=== PATIENT | male | born 1950 | race Caucasian/White ===

== ENCOUNTER 2017-05-12 19:37 | Inpatient (IN) | payer OTHER ==
[2017-05-12 19:42] VITALS: BMI 36.9
--- NOTE | 2017-05-12 21:53 | PDOC ---
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 Patient denies fever, complains of tactile warmth. Patient denies nausea/vomiting/diarrhea. Patient's wound was cultured at the [facility] wound care clinic on May 07 of this year with the resultant wound culture being positive for Klebsiella-ESBL producing, Pseudomonas, staph aureus and Enterococcus faecalis. Patient was instructed to report to the ER for further evaluation and treatment REVIEW OF SYSTEMS CONSTITUTIONAL: No fever, no chills, no fatigue EYES: No visual changes ENT: No ear pain, no sore throat CARDIOVASCULAR: No chest pain, no palpitations RESPIRATORY: No cough, no SOB GI: No abdominal pain, no nausea, no vomiting, no constipation, no diarrhea GENITOURINARY: No dysuria, no frequency, no hematuria MUSKULOSKELETAL: No backpain, r. leg pain/erythema/wound/pain, no myalgias SKIN: No rash NEURO: No headache EXAMINATION CONSTITUTIONAL: Well-appearing; well-nourished; in no apparent distress HEAD: Normocephalic; atraumatic EYES: PERRL; EOM intact ENMT: External appears normal; normal oropharynx NECK: Supple; non-tender; no cervical lymphadenopathy CARD: Normal S1, S2; no murmurs, rubs, or gallops RESP: Normal chest excursion with respiration; breath sounds clear and equal bilaterally; no wheezes, rhonchi, or rales ABD: Soft, non-distended; non-tender; no palpable organomegaly, no palpable hernias EXT: + extensive chronic venous stasis dermatitis with extensive plaque formation b/l, with a large non-healing superficial ulceration with surrounding erythema to the distal 1/3 of the RLE with foul smelling discharge. Distal pulses are decreased b/l. SKIN: Warm, dry, no rash NEURO: No focal neurological deficiencies. 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) COPD: No CHF: No Dementia: No Diabetes: No GI Disorders: No Disorders: No HTN: Yes Hypercholesterolemia: Yes Liver Disease: No Psychiatric Problems: Yes (depression) Seizures: No Thyroid Disease: No Other medical history: dvt - Surgical History Abdominal Surgery: No Appendectomy: No Cardiac Surgery: No Cholecystectomy: No Lung Surgery: No Neurologic Surgery: No Orthopedic Surgery: Yes (broken colloar bone) - Immunization History Immunization Up to Date: Yes - Psycho/Social/Smoking Cessation Hx Anxiety: No Suicidal Ideation: No Smoking History: Never smoked Have you smoked in the past 12 months: No Number of Cigarettes Smoked Daily: 0 Hx Alcohol Use: Yes (socially) Drug/Substance Use Hx: No Substance Use Type: None Hx Substance Use Treatment: No <Zohaib Olmstead - Last Filed: 05/13/17 00:28> - Past Medical History Allergies/Adverse Reactions: Allergies Allergy/AdvReac Type Severity Reaction Status Date / Time No Known Allergies Allergy Verified 05/12/17 19:39 Home Medications: Ambulatory Orders Lamotrigine [Lamictal -] 600 mg PO HS #0 tablet 09/11/13 Warfarin Sodium [Coumadin] 7.5 mg PO DAILY #0 tablet 09/11/13 Crestor - 10 mg PO DAILY 04/30/17 Acetaminophen W/ Codeine #3 [Tylenol # 3 -] 1 tab PO Q6H #60 tablet MDD 4 Amoxicillin/Potassium Clav [Augmentin 875-125 Tablet] 1 each PO BID #14 tablet 05/07/17 *Physical Exam - Vital Signs Last Vital Signs Temp Pulse Resp BP Pulse Ox 98.7 F 86 20 122/80 96 05/12/17 19:39 05/12/17 19:39 05/12/17 19:39 05/12/17 19:39 05/12/17 19:39 <Marge Matthew - Last Filed: 05/12/17 23:40> - Vital Signs Last Vital Signs Temp Pulse Resp BP Pulse Ox 98.7 F 86 20 122/80 96 05/12/17 19:39 05/12/17 19:39 05/12/17 19:39 05/12/17 19:39 05/12/17 19:39 <Zohaib Olmstead - Last Filed: 05/13/17 00:28> Heart Score/ECG Review - ECG Impressions Comment:: 05/12/17 23:43 EKG As Interpreted by: Dr. Olmstead Vent rate 86 bpm Normal sinus rhythm Moderate voltage criteria for LVH, may be normal variant Borderline ECG <Marge Matthew - Last Filed: 05/12/17 23:40> ED Treatment Course - LABORATORY CBC & Chemistry Diagram: 05/12/17 22:43 05/12/17 22:43 - ADDITIONAL ORDERS Additional order review: Laboratory Results 05/12/17 05/12/17 22:43 22:43 INR 1.12 D Sodium 139 Potassium 4.2 Chloride 101 Carbon Dioxide 30 Anion Gap 8 BUN 20 H D Creatinine 1.1 Creat Clearance w eGFR > 60 Random Glucose 99 Calcium 8.5 Total Bilirubin 0.5 D AST 26 ALT 24 D Alkaline Phosphatase 54 Total Protein 6.4 Albumin 3.1 L 05/12/17 22:43 RBC 4.07 MCV 90.3 MCHC 33.7 RDW 14.1 D MPV 7.0 L Neutrophils % 60.2 D Lymphocytes % 24.9 D Monocytes % 12.2 H Eosinophils % 1.8 D Basophils % 0.9 <Marge Matthew - Last Filed: 05/12/17 23:40> - LABORATORY CBC & Chemistry Diagram: 05/12/17 22:43 05/12/17 22:43 <Zohaib Olmstead - Last Filed: 05/13/17 00:28> Medical Decision Making - Medical Decision Making 05/13/17 00:27 Patient is 66-year-old male with history of chronic venous stasis and recurrent nonhealing ulcers who presents with a nonhealing right lower externally ulceration with associated cellulitis which on a recent wound culture was positive for polymicrobial infection included Klebsiella which was ESBL producing. In the ER, patient is awake and alert, afebrile, nontoxic appearing with extensive chronic venous stasis dermatitis and a large superficial ulceration which appears acutely infected to the distal one third of the right lower extremity. Case discussed with ID. Will treat with imipenem and vancomycin pending results of the ER sensitivity studies. Will admit. <Zohaib Olmstead - Last Filed: 05/13/17 00:28> *DC/Admit/Observation/Transfer <Marge Matthew - Last Filed: 05/12/17 23:40> - Discharge Dispostion Admit: Yes <Zohaib Olmstead - Last Filed: 05/13/17 00:28> Diagnosis at time of Disposition: Cellulitis Qualifiers: Site of cellulitis: extremity Site of cellulitis of extremity: lower extremity Laterality: right Qualified Code(s): L03.115 - Cellulitis of right lower limb - Referrals Referrals: Wilbert Slade [Primary Care Provider] -
[2017-05-12] MEDS ORDERED: IMIPENEM/CILASTATIN SODIUM 500 MG in SODIUM CHLORIDE 100 ML IV ONE (22:50)
[2017-05-12 23:05] LABS: BASOPHIL 0.9 % (0-2.0); EOSINOPHIL 1.8 % (0-4.5); MCH 30.4 pg (25.7-33.7); MCHC 33.7 g/dl (32.0-35.9); MEAN CELL VOLUME 90.3 fl (80-96); NEUTROPHILS 60.2 % (42.8-82.8); PLATELET COUNT 220 K/MM3 (134-434); RDW 14.1 % (11.9-15.9); WHITE BLOOD COUNT 7.1 K/mm3 (4.0-10.0)
[2017-05-12 23:20] LABS: INR 1.12 (0.82-1.09); PROTHROMBIN TIME (PATIENT) 12.3 SEC (9.98-11.88)
[2017-05-12 23:32] LABS: ALBUMIN 3.1 g/dl (3.4-5.0); ALK PHOS 54 U/L (45-117); ANION GAP 8 (8-16); BILIRUBIN,TOTAL 0.5 mg/dL (0.2-1.0); CALCIUM 8.5 mg/dL (8.5-10.1); CO2 30 mmol/L (21-32); CREATININE 1.1 mg/dL (0.7-1.3); GLUCOSE,RANDOM 99 mg/dL (74-106); SGPT/ALT 24 U/L (12-78); TOT PROT 6.4 g/dl (6.4-8.2)
[2017-05-12] MEDS ORDERED: ENOXAPARIN NA (PORCINE) 100 MG/1 ML DISP.SYRIN SQ ONE (23:32)
[2017-05-12 23:34] LABS: SGOT/AST 26 U/L (15-37)
[2017-05-12] MEDS ORDERED: WARFARIN NA 10 MG TABLET (FP) PO ONE (23:34)
[2017-05-13] MEDS ORDERED: ENOXAPARIN NA (PORCINE) 100 MG/1 ML DISP.SYRIN SQ ONE (00:03)
[2017-05-13] MEDS ORDERED: WARFARIN NA 5 MG TABLET (UD) ONE (00:03)
--- NOTE | 2017-05-13 00:10 | PN ---
Teaching Attending Note ATTENDING PHYSICIAN STATEMENT I saw and evaluated the patient. I reviewed the resident's note and discussed the case with the resident. I agree with the resident's findings and plan as documented. SUBJECTIVE: OBJECTIVE: ASSESSMENT AND PLAN:
[2017-05-13] MEDS ORDERED: HEPARIN NA (PORCINE) 5,000 UNITS/ML 1ML VIAL SQ SCH (02:00)
--- NOTE | 2017-05-13 03:48 | HP ---
CHIEF COMPLAINT: Received call from wound care for positive blood cultures HISTORY OF PRESENT ILLNESS: Pt is a 66yo M with PMHx of chronic venous insufficiency, recurrent nonhealing lower extremity ulcers, bilateral DVTs (on Coumadin) who presented to the ER due to positive wound cultures. The patient is well known to Dr. Gray's wound care clinic. He presented there on May 07 for a routine visit, with recently developed a RLE nonhealing large superficial ulcer draining clear liquid, malodorous. His wound was cultured at the wound clinic, he was prescribed Augmentin, and sent home. He received a call from the wound clinic due to positive wound cultures, and was instructed to report to the ER. He denies fevers, chills, endorses TTP around site. Denies recent trauma to the site. 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 Smoking: Denies Alcohol: Occasional Drugs: Denies Family History: Noncontributory Allergies No Known Allergies Allergy (Verified 05/12/17 19:39) HOME MEDICATIONS: Home Medications Medication Instructions Recorded Crestor - 10 mg PO HS 04/30/17 Amoxicillin/Potassium Clav 1 each PO BID #14 tablet 05/07/17 [Augmentin 875-125 Tablet] Acetaminophen W/ Codeine #3 1 tab PO Q6H PRN MDD 4 05/13/17 [Tylenol # 3 -] Alprazolam 0.5 mg PO DAILY 05/13/17 Alprazolam 1 mg PO HS 05/13/17 Brexpiprazole [Rexulti] 0.5 mg PO DAILY 05/13/17 Furosemide [Lasix] 80 mg PO DAILY 05/13/17 Lamotrigine [Lamictal -] 200 mg PO HS 05/13/17 Lisdexamfetamine Dimesylate 20 mg PO DAILY 05/13/17 [Vyvanse] Lisdexamfetamine Dimesylate 40 mg PO DAILY 05/13/17 [Vyvanse] Sertraline HCl [Zoloft] 150 mg PO DAILY 05/13/17 Warfarin Sodium [Coumadin] 10 mg PO DAILY 05/13/17 REVIEW OF SYSTEMS CONSTITUTIONAL: Absent: fever, chills, diaphoresis, generalized weakness, malaise, loss of appetite, weight change HEENT: Absent: rhinorrhea, nasal congestion, throat pain, throat swelling, difficulty swallowing, mouth swelling, ear pain, eye pain, visual changes CARDIOVASCULAR: Absent: chest pain, syncope, palpitations, irregular heart rate, lightheadedness , peripheral edema RESPIRATORY: Absent: cough, shortness of breath, dyspnea with exertion, orthopnea, wheezing, stridor, hemoptysis GASTROINTESTINAL: Absent: abdominal pain, abdominal distension, nausea, vomiting, diarrhea, constipation, melena, hematochezia GENITOURINARY: Absent: dysuria, frequency, urgency, hesitancy, hematuria, flank pain, genital pain MUSCULOSKELETAL: Absent: myalgia, arthralgia, joint swelling, back pain, neck pain SKIN: Absent: rash, itching, pallor HEMATOLOGIC/IMMUNOLOGIC: Absent: easy bleeding, easy bruising, lymphadenopathy, frequent infections ENDOCRINE: Absent: unexplained weight gain, unexplained weight loss, heat intolerance, cold intolerance NEUROLOGIC: Absent: headache, focal weakness or paresthesias, dizziness, unsteady gait, seizure, mental status changes, bladder or bowel incontinence PSYCHIATRIC: Absent: anxiety, depression, suicidal or homicidal ideation, hallucinations. PHYSICAL EXAMINATION GEN: AAOx3, NAD, No cervical LAD HEENT: PERRLA, EOMi CV: S1, S2, RRR LUNG: CTABL ABD: Soft, NT, ND, normoactive BS MSK: Right Lower Ext: Large open superficial ulcer extending from lateral midcalf to ankle, malodorous, minimal oozing, no bone exposed, TTP Left Lower Ext: Chronic venous stasis changes, no edema NEURO: CN 2-12 intact, sensation equal and intact to face/body bilaterally, MSK 5/5, Reflexes 2+ Laboratory Last Values WBC 7.1 K/mm3 (4.0-10.0) 05/12/17 22:43 RBC 4.07 M/mm3 (4.00-5.60) 05/12/17 22:43 Hgb 12.4 GM/dL (11.7-16.9) 05/12/17 22:43 Hct 36.7 % (35.4-49) 05/12/17 22:43 MCV 90.3 fl (80-96) 05/12/17 22:43 MCH 30.4 pg (25.7-33.7) 05/12/17 22:43 MCHC 33.7 g/dl (32.0-35.9) 05/12/17 22:43 RDW 14.1 % (11.9-15.9) D 05/12/17 22:43 Plt Count 220 K/MM3 (134-434) D 05/12/17 22:43 MPV 7.0 fl (7.5-11.1) L 05/12/17 22:43 Neutrophils % 60.2 % (42.8-82.8) D 05/12/17 22:43 Lymphocytes % 24.9 % (8-40) D 05/12/17 22:43 Monocytes % 12.2 % (3.8-10.2) H 05/12/17 22:43 Eosinophils % 1.8 % (0-4.5) D 05/12/17 22:43 Basophils % 0.9 % (0-2.0) 05/12/17 22:43 INR 1.12 (0.82-1.09) D 05/12/17 22:43 Sodium 139 mmol/L (136-145) 05/12/17 22:43 Potassium 4.2 mmol/L (3.5-5.1) 05/12/17 22:43 Chloride 101 mmol/L (98-107) 05/12/17 22:43 Carbon Dioxide 30 mmol/L (21-32) 05/12/17 22:43 Anion Gap 8 (8-16) 05/12/17 22:43 BUN 20 mg/dL (7-18) H D 05/12/17 22:43 Creatinine 1.1 mg/dL (0.7-1.3) 05/12/17 22:43 Creat Clearance w eGFR > 60 (>60) 05/12/17 22:43 Random Glucose 99 mg/dL (74-106) 05/12/17 22:43 Calcium 8.5 mg/dL (8.5-10.1) 05/12/17 22:43 Total Bilirubin 0.5 mg/dL (0.2-1.0) D 05/12/17 22:43 AST 26 U/L (15-37) 05/12/17 22:43 ALT 24 U/L (12-78) D 05/12/17 22:43 Alkaline Phosphatase 54 U/L (45-117) 05/12/17 22:43 Total Protein 6.4 g/dl (6.4-8.2) 05/12/17 22:43 Albumin 3.1 g/dl (3.4-5.0) L 05/12/17 22:43 Active Medications Generic Name Dose Route Start Last Admin Trade Name Freq PRN Reason Stop Dose Admin Acetaminophen/Codeine Phosphate 1 tab 05/13/17 02:17 Tylenol # 3 - PO Q6H PRN PAIN Alprazolam 0.5 mg 05/13/17 14:30 Xanax - PO DAILY@1430 [facility] Alprazolam 1 mg 05/13/17 22:00 Xanax - PO HS [facility] Furosemide 80 mg 05/13/17 10:00 Lasix - PO DAILY [facility] Vancomycin HCl 2,000 mg/ 500 mls @ 250 mls/hr 05/13/17 10:00 Dextrose IVPB DAILY [facility] Protocol Lamotrigine 200 mg 05/13/17 22:00 Lamictal - PO HS [facility] Non-Formulary Medication 0.5 mg 05/13/17 10:00 Brexpiprazole [Rexulti] PO DAILY [facility] Non-Formulary Medication 40 mg 05/13/17 10:00 Lisdexamfetamine Dimesylate [Vyvanse] PO DAILY [facility] Non-Formulary Medication 20 mg 05/13/17 14:30 Lisdexamfetamine Dimesylate [Vyvanse] PO DAILY@1430 [facility] Rosuvastatin Calcium 10 mg 05/13/17 22:00 Crestor - PO HS [facility] Sertraline HCl 150 mg 05/13/17 10:00 Zoloft - PO DAILY [facility] Warfarin Sodium 10 mg 05/13/17 18:00 Coumadin - PO DAILY@1800 [facility] ASSESSMENT/PLAN: Pt is a 66 yo M with PMHx of chronic venous stasis and recurrent nonhealing BLLE ulcers, B/L DVT (on Coumadin) who presented with nonhealing RLE polymicrobial ulcer. # Infected RLE Ulcer - Wound culture grew +Klebsiella (resistant to Augmentin), Pseudomonas, Staph Aureus, Enterococcus Faecalis - Started on Vancomycin 2g QD - Given IV Imipenem/Cilistatin 500mg x1 once - ID consult for continuation of antibiotics - Blood cx pending - ESR/CRP pending - Consider imaging if ESR/CRP is elevated - Continue Lasix 80mg QD, pt has no hx of CHF, dose was recently increased from 40mg - Continue Tylenol with Codeine for pain - Vascular Consult for wound-care # Subtherapeutic INR - Patient admits to not taking Coumadin for a couple of days because he ran out - Given 10mg Coumadin today - Given Lovenox 100mg SQ once - PT/INR daily - Dose Coumadin accordingly # HLD - Continue statin # Hx of MDD and Anxiety - Continue Rexulti - Continue Vyvanse - Continue Lamotrigine - Continue Sertraline - Continue Alprazolam # FEN - Fluids: None needed - Electrolyte: WNL - Nutrition: Regular Diet # Prophylaxis - DVT: Received Lovenox, on Coumadin - GI: Not indicated - Deconditioning: PT ordered # Dispo - Admit to Med/Surg for IV abx - F/u ID reccs # Med Rec - Home meds were reconciled at bedside as patient brought all his pill bottles with him Case was discussed with Senior Resident Dr. Cronin and Attending Dr. Abbey Turcios MD - PGY1 Internal Medicine Visit type - Emergency Visit Emergency Visit: Yes ED Registration Date: 05/13/17 Care time: The patient presented to the Emergency Department on the above date and was hospitalized for further evaluation of their emergent condition. - New Patient This patient is new to me today: Yes Date on this admission: 05/13/17 - Critical Care Critical Care patient: No
[2017-05-13] MEDS ORDERED: BREXPIPRAZOLE PO SCH (10:00)
[2017-05-13] MEDS ORDERED: VANCOMYCIN 2,000 MG in DEXTROSE 5%-WATER - 500 ML IVPB SCH (10:00)
--- NOTE | 2017-05-13 10:11 | CONSULT ---
Consult Consult Specialty:: Infectious Diseases Referred by:: Dr. 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 He has a Hx of chronic venous stasis. He has a HX of chronic ulcers that few weeks ago, worsened. This was cultures recently and results were reviewed. He has since noted increased drainage and pain. No fever, chills. 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 Home Medications - Allergies Allergies/Adverse Reactions: Allergies Allergy/AdvReac Type Severity Reaction Status Date / Time No Known Allergies Allergy Verified 05/12/17 19:39 - Home Medications Home Medications: Ambulatory Orders Crestor - 10 mg PO HS 04/30/17 Amoxicillin/Potassium Clav [Augmentin 875-125 Tablet] 1 each PO BID #14 tablet 05/07/17 Acetaminophen W/ Codeine #3 [Tylenol # 3 -] 1 tab PO Q6H PRN MDD 4 05/13/17 Alprazolam 0.5 mg PO DAILY 05/13/17 Alprazolam 1 mg PO HS 05/13/17 Brexpiprazole [Rexulti] 0.5 mg PO DAILY 05/13/17 Furosemide [Lasix] 80 mg PO DAILY 05/13/17 Lamotrigine [Lamictal -] 200 mg PO HS 05/13/17 Lisdexamfetamine Dimesylate [Vyvanse] 20 mg PO DAILY 05/13/17 Lisdexamfetamine Dimesylate [Vyvanse] 40 mg PO DAILY 05/13/17 Sertraline HCl [Zoloft] 150 mg PO DAILY 05/13/17 Warfarin Sodium [Coumadin] 10 mg PO DAILY 05/13/17 Family Disease History - Family Disease History Family Disease History: Heart Disease: Father (phebletis, chol, HTN) Physical Exam Vital Signs: Vital Signs Temperature 98.7 F 05/12/17 19:39 Pulse Rate 86 05/12/17 19:39 Respiratory Rate 20 05/12/17 19:39 Blood Pressure 122/80 05/12/17 19:39 O2 Sat by Pulse Oximetry (%) 96 05/12/17 19:39 Constitutional: Yes: No Distress, Calm, Obese Eyes: Yes: Conjunctiva Clear, PERRL HENT: Yes: Normocephalic Neck: Yes: Supple Cardiovascular: Yes: Regular Rate and Rhythm Respiratory: Yes: CTA Bilaterally Gastrointestinal: Yes: Normal Bowel Sounds, Soft ((+) large Ulcer (R) leg with foul smelling dressing that were soaked. (+) erythematous borders with cellulitic edges. Granulating tissue) Problem List - Problems (1) Cellulitis Code(s): L03.90 - CELLULITIS, UNSPECIFIED Qualifiers: Site of cellulitis: extremity Site of cellulitis of extremity: lower extremity Laterality: right Qualified Code(s): L03.115 - Cellulitis of right lower limb (2) Venous (peripheral) insufficiency Code(s): I87.2 - VENOUS INSUFFICIENCY (CHRONIC) (PERIPHERAL) Assessment/Plan Pt with Chronic Venous insufficeincy, Venous stasis with ulceration. (R) lower extremity cellulitis. Rx Imipenem 500 mg q 6 hrs and Vanco 1 gr q 12 hrs
[2017-05-13] MEDS: SERTRALINE HCL 50 MG TABLET (FP) PO SCH (10:22)
--- NOTE | 2017-05-13 11:10 | EKG ---
Test Reason : Blood Pressure : / mmHG Vent. Rate : 086 BPM Atrial Rate : 086 BPM P-R Int : 152 ms QRS Dur : 090 ms QT Int : 366 ms P-R-T Axes : 046 -21 040 degrees QTc Int : 437 ms NORMAL SINUS RHYTHM MODERATE VOLTAGE CRITERIA FOR LVH, MAY BE NORMAL VARIANT BORDERLINE ECG WHEN COMPARED WITH ECG OF 06-DEC-2013 19:39, NO SIGNIFICANT CHANGE WAS FOUND Confirmed by CYNDI AGARWAL, MARLA ([id number]) on 05/13/2017 11:10:35 AM Referred By: Confirmed By:MARLA HANNA MD
[2017-05-13] MEDS: FUROSEMIDE 40 MG TABLET (FP) PO SCH (11:23)
[2017-05-13] MEDS ORDERED: VANCOMYCIN 1 GRAM (PRE-DOCKED) 250 ML IVPB SCH (12:15)
--- NOTE | 2017-05-13 13:05 | PN ---
Progress Note (short form) - Note Progress Note: [facility] Pt seen in wound care clinic last week. Pt has venous stasis ulcer with cellulitis. wound cx grew out pseudomonas, kleb . Pt needs IV antibiotics , leg elevation. DANITA bandage for compression. alginate dressing to left lower ext wound. Jaren Gray DO
[2017-05-13] MEDS ORDERED: [UNRECOGNIZED DRUG - OTHER] PO SCH (14:30)
[2017-05-13] MEDS: ALPRAZolam 0.25 MG TABLET PO SCH (15:41)
[2017-05-13] MEDS ORDERED: morphine CARPU-JECT 2 MG/1 ML DISP.SYRIN IVPB PRN (15:45)
--- NOTE | 2017-05-13 15:48 | PN ---
Physical Exam: SUBJECTIVE: Patient seen and examined. Verbalizes pain of the right lower ext after wound care was completed. OBJECTIVE: Tylenol with codeine if pain levels are moderate, for severe pain: Morphine 2mg ivpush Vital Signs Period Temp Pulse Resp BP Sys/Louise Pulse Ox Last 24 Hr 97.8 F-98.4 F 76-77 18-20 118-128/62-76 94 GENERAL: The patient is awake, alert, and fully oriented, in no acute distress. HEAD: Normal with no signs of trauma. EYES: PERRL, extraocular movements intact, sclera anicteric, conjunctiva clear. No ptosis. ENT: Ears normal, nares patent, oropharynx clear without exudates, moist mucous membranes. NECK: Trachea midline, full range of motion, supple. LUNGS: Breath sounds equal, clear to auscultation bilaterally, no wheezes, no crackles, no accessory muscle use. HEART: Regular rate and rhythm, S1, S2 without murmur, rub or gallop. ABDOMEN: Soft, nontender, nondistended, normoactive bowel sounds, no guarding NEUROLOGICAL: Normal speech, gait not observed. PSYCH: Normal mood, normal affect. SKIN: Warm, dry, normal turgor, no rashes or lesions noted Right Lower Ext: Large open superficial ulcer extending from lateral midcalf to ankle, +odor, oozing Active Medications Generic Name Dose Route Start Last Admin Trade Name Freq PRN Reason Stop Dose Admin Acetaminophen/Codeine Phosphate 1 tab 05/13/17 02:17 Tylenol # 3 - PO Q6H PRN PAIN Alprazolam 0.5 mg 05/13/17 14:30 05/13/17 15:41 Xanax - PO Not Given DAILY@1430 [facility] Alprazolam 1 mg 05/13/17 22:00 Xanax - PO HS [facility] Alprazolam 0.25 mg 05/14/17 10:00 Xanax - PO DAILY [facility] Furosemide 80 mg 05/13/17 10:00 05/13/17 11:23 Lasix - PO 80 mg DAILY [facility] Administration Imipenem/Cilastatin Sodium 500 100 mls @ 100 mls/hr 05/13/17 12:00 mg/ Sodium Chloride IVPB 05/16/17 21:59 Q6H-IV [facility] Protocol Vancomycin HCl 250 mls @ 250 mls/hr 05/13/17 22:00 Vancomycin (Pre-Docked) IVPB BID [facility] Protocol Lamotrigine 200 mg 05/13/17 22:00 Lamictal - PO HS [facility] Morphine Sulfate 2 mg 05/13/17 15:47 Morphine Injection - IVPB Q4H PRN PAIN Non-Formulary Medication 0.5 mg 05/13/17 10:00 Brexpiprazole [Rexulti] PO DAILY [facility] Non-Formulary Medication 40 mg 05/13/17 10:00 Lisdexamfetamine Dimesylate [Vyvanse] PO DAILY [facility] Non-Formulary Medication 20 mg 05/13/17 14:30 Lisdexamfetamine Dimesylate [Vyvanse] PO DAILY@1430 [facility] Rosuvastatin Calcium 10 mg 05/13/17 22:00 Crestor - PO [facility] Sertraline HCl 150 mg 05/13/17 10:00 05/13/17 10:22 Zoloft - PO 150 mg DAILY [facility] Administration Warfarin Sodium 10 mg 05/13/17 18:00 Coumadin - PO DAILY@1800 [facility] ASSESSMENT/PLAN: Patient is a 66 year old male with a significant past medical history of chronic venous insufficiency, recurrent non-healing lower extremity ulcers, 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 He presents to the ED who presented to the ER due to positive wound cultures. The patient is a patient of Dr. Gray's wound care clinic. On 05/07/2017 he presented to the ER when he developed a RLE non-healing large superficial ulcer draining clear liquid, malodorous. His wound was cultured at the wound clinic, he was prescribed Augmentin and was sent home. He received a call from the wound clinic due to positive wound cultures, and was instructed to report to the ER. ID: Cellulitis/Infected RLE ulceration/Venous stasis A/P: Wound culture +pseudomonas + klebsiella Patient was on Augmentin outpatient Now on Vanco and Imipenem Elevated RLE at all times, wound care with alginate dressing and dewayne bandages Vascular following, ID following Tylenol with codeine, Morphine for pain Vascular consult Repeat blood cultures pending Hematology: Bilateral DVTs with Subtherapeutic INR A/P: On home Coumadin 7.5mg - with non compliance secondary to running out of medication In the ED he was given Coumadin 10mg and Lovenox 100mg SQ x 1 Will see what INR is in a.m., if subtherapeutic, will start Lovenox BID with Coumadin bridge Anxiety/Major Depressive Disorder A/P: Continue home medications F.E.N. Fluids: on PO Electrolytes:monitor Nutrition: regular Prophylaxis: DVT: Lovenox, Coumadin GI: Protonix Disposition: Requires inpatient hospitalization. Full code. Visit type - Emergency Visit Emergency Visit: Yes ED Registration Date: 05/13/17 Care time: The patient presented to the Emergency Department on the above date and was hospitalized for further evaluation of their emergent condition. - New Patient This patient is new to me today: Yes Date on this admission: 05/13/17 - Critical Care Critical Care patient: No - Discharge Referral Referred to [facility] No
[2017-05-13] MEDS: IMIPENEM/CILASTATIN SODIUM 500 MG in SODIUM CHLORIDE 100 ML IVPB SCH ×3 (16:05→22:00)
[2017-05-13] MEDS ORDERED: PT OWN MED DRAWER 7, Y5N ONE ×3 (16:11→22:47)
[2017-05-13] MEDS: morphine CARPU-JECT 2 MG/1 ML DISP.SYRIN IVPB PRN (16:45)
[2017-05-13] MEDS: WARFARIN NA 10 MG TABLET (FP) PO SCH (18:12)
[2017-05-13] MEDS: ACETAMINOPHEN WITH CODEINE 300MG/30MG TABLET PO PRN (20:27)
[2017-05-13] MEDS: ALPRAZolam 2 MG TABLET PO SCH (23:16)
[2017-05-13] MEDS: VANCOMYCIN 1 GRAM (PRE-DOCKED) 250 ML IVPB SCH (23:16)
[2017-05-13] MEDS: ROSUVASTATIN CA 10 MG TABLET (FP) PO SCH (23:16)
[2017-05-13] MEDS: lamoTRIgine 100 MG TABLET (FP) PO SCH (23:17)
[2017-05-14] MEDS: IMIPENEM/CILASTATIN SODIUM 500 MG in SODIUM CHLORIDE 100 ML IVPB SCH ×4 (03:20→21:00)
[2017-05-14 04:27] LABS: C-REACTIVE PROTEIN 4.7 MG/DL (0.00-0.3)
[2017-05-14 07:42] LABS: BASOPHIL 0.9 % (0-2.0); EOSINOPHIL 2.4 % (0-4.5); MCH 30.5 pg (25.7-33.7); MCHC 33.6 g/dl (32.0-35.9); MEAN CELL VOLUME 90.7 fl (80-96); MEAN PLT VOLUME 7.3 fl (7.5-11.1); NEUTROPHILS 63.2 % (42.8-82.8); PLATELET COUNT 195 K/MM3 (134-434); RDW 14.1 % (11.9-15.9); WHITE BLOOD COUNT 7.1 K/mm3 (4.0-10.0)
[2017-05-14 07:52] LABS: ALBUMIN 2.8 g/dl (3.4-5.0); ALK PHOS 51 U/L (45-117); ANION GAP 6 (8-16); BILIRUBIN,TOTAL 0.5 mg/dL (0.2-1.0); CALCIUM 8.4 mg/dL (8.5-10.1); CO2 31 mmol/L (21-32); CREATININE 0.9 mg/dL (0.7-1.3); GLUCOSE,RANDOM 100 mg/dL (74-106); SGOT/AST 26 U/L (15-37); SGPT/ALT 28 U/L (12-78); TOT PROT 5.9 g/dl (6.4-8.2)
[2017-05-14 08:00] LABS: INR 1.26 (0.82-1.09); PROTHROMBIN TIME (PATIENT) 13.9 SEC (9.98-11.88)
--- NOTE | 2017-05-14 08:50 | PN ---
Progress Note (short form) - Note Progress Note: [facility] Right lower ext cellulitis with venous stasis. Wound is getting better on antibiotics. Alginate with dewayne bandage daily. leg elevation Cont IV antibiotics Jaren Gray DO
[2017-05-14] MEDS: ACETAMINOPHEN WITH CODEINE 300MG/30MG TABLET PO PRN ×4 (09:01→22:16)
[2017-05-14] MEDS ORDERED: PT OWN MED DRAWER 7, Y5N ONE ×4 (09:38→21:45)
[2017-05-14] MEDS: ALPRAZolam 0.25 MG TABLET PO SCH ×2 (09:45→13:49)
[2017-05-14] MEDS: SERTRALINE HCL 50 MG TABLET (FP) PO SCH (09:45)
[2017-05-14] MEDS: FUROSEMIDE 40 MG TABLET (FP) PO SCH (09:46)
[2017-05-14] MEDS: BREXPIPRAZOLE PO SCH (09:46)
[2017-05-14] MEDS: LISDEXAMFETAMINE DIMESYLATE 40 MG PO SCH (09:47)
--- NOTE | 2017-05-14 10:32 | PN ---
Physical Exam: SUBJECTIVE: Patient seen and examined at the bedside. States pain is better controlled with the Tylenol with Codeine. OBJECTIVE: INR remains subtherapeutic @1.2, Will start on Lovenox 100mg BID, with Coumadin bridge. Recheck INR in a.m Patient admits to missing "a few doses" of Coumadin at home. Reinforced importance of taking Coumadin daily and maintaining INR levels between 2-3. Vital Signs Period Temp Pulse Resp BP Sys/Louise Pulse Ox Last 24 Hr 97.8 F-98.9 F 77-79 20-20 118-120/62-68 94-94 GENERAL: The patient is awake, alert, and fully oriented, in no acute distress. HEAD: Normal with no signs of trauma. EYES: PERRL, extraocular movements intact, sclera anicteric, conjunctiva clear. No ptosis. ENT: Ears normal, nares patent, oropharynx clear without exudates, moist mucous membranes. NECK: Trachea midline, full range of motion, supple. LUNGS: Breath sounds equal, clear to auscultation bilaterally, no wheezes, no crackles, no accessory muscle use. HEART: Regular rate and rhythm, S1, S2 without murmur, rub or gallop. ABDOMEN: Soft, nontender, nondistended, normoactive bowel sounds, no guarding NEUROLOGICAL: Normal speech, gait not observed. PSYCH: Normal mood, normal affect. SKIN: Warm, dry, normal turgor, no rashes or lesions noted Right Lower Ext: Large open superficial ulcer extending from lateral midcalf to ankle, +odor, oozing Laboratory Results - last 24 hr 05/13/17 05/14/17 05/14/17 06:30 06:30 06:30 WBC Cancelled Corrected WBC (auto) Cancelled RBC Cancelled Hgb Cancelled Hct Cancelled MCV Cancelled MCH Cancelled MCHC Cancelled RDW Cancelled Plt Count Cancelled MPV Cancelled Neutrophils % Lymphocytes % Monocytes % Eosinophils % Basophils % Differential Comment Cancelled Platelet Estimate Cancelled Platelet Comment Cancelled RBC Morphology Cancelled ESR 48 H INR Sodium 140 Potassium 4.0 Chloride 103 Carbon Dioxide 31 Anion Gap 6 L BUN 18 Creatinine 0.9 Creat Clearance w eGFR > 60 Random Glucose 100 Calcium 8.4 L Total Bilirubin 0.5 AST 26 ALT 28 Alkaline Phosphatase 51 Total Protein 5.9 L Albumin 2.8 L 05/14/17 05/14/17 06:30 06:30 WBC 7.1 Corrected WBC (auto) RBC 4.02 Hgb 12.2 Hct 36.4 MCV 90.7 MCH 30.5 MCHC 33.6 RDW 14.1 Plt Count 195 MPV 7.3 L Neutrophils % 63.2 Lymphocytes % 22.7 Monocytes % 10.8 H Eosinophils % 2.4 Basophils % 0.9 Differential Comment Platelet Estimate Platelet Comment RBC Morphology ESR INR 1.26 H Sodium Potassium Chloride Carbon Dioxide Anion Gap BUN Creatinine Creat Clearance w eGFR Random Glucose Calcium Total Bilirubin AST ALT Alkaline Phosphatase Total Protein Albumin Active Medications Generic Name Dose Route Start Last Admin Trade Name Freq PRN Reason Stop Dose Admin Acetaminophen/Codeine Phosphate 1 tab 05/13/17 02:17 05/14/17 09:01 Tylenol # 3 - PO 1 tab Q6H PRN Administration PAIN Alprazolam 0.5 mg 05/13/17 14:30 05/13/17 15:41 Xanax - PO Not Given DAILY@1430 [facility] Alprazolam 1 mg 05/13/17 22:00 05/13/17 23:16 Xanax - PO 1 mg HS [facility] Administration Alprazolam 0.25 mg 05/14/17 10:00 05/14/17 09:45 Xanax - PO 0.25 mg DAILY [facility] Administration Enoxaparin Sodium 100 mg 05/14/17 10:45 Lovenox - SQ BID [facility] Furosemide 80 mg 05/13/17 10:00 05/14/17 09:46 Lasix - PO 80 mg DAILY [facility] Administration Imipenem/Cilastatin Sodium 500 100 mls @ 100 mls/hr 05/13/17 12:00 05/14/17 10: 07 mg/ Sodium Chloride IVPB 05/16/17 21:59 100 mls/hr Q6H-IV [facility] Administration Protocol Vancomycin HCl 250 mls @ 250 mls/hr 05/13/17 22:00 05/13/17 23:16 Vancomycin (Pre-Docked) IVPB 250 mls/hr BID [facility] Administration Protocol Lamotrigine 200 mg 05/13/17 23:00 05/13/17 23:17 Lamictal - PO 200 mg HS [facility] Administration Morphine Sulfate 2 mg 05/13/17 15:47 05/13/17 16:45 Morphine Injection - IVPB 2 mg Q4H PRN Administration PAIN Non-Formulary Medication 40 mg 05/14/17 10:00 05/14/17 09:47 Lisdexamfetamine Dimesylate [Vyvanse] PO 40 mg DAILY [facility] Administration [employer] Med ( 0.5 mg 05/14/17 10:00 05/14/17 09:46 Brexpiprazole [ PO 0.5 mg Rexulti] 0.5 Mg) DAILY [facility] Administration [employer]( 20 mg 05/14/17 14:30 Lisdexamfetamine PO Dimesylate [Vyvanse] DAILY@1430 [facility] 20 Mg) Rosuvastatin Calcium 10 mg 05/13/17 22:00 05/13/17 23:16 Crestor - PO 10 mg HS [facility] Administration Sertraline HCl 150 mg 05/13/17 10:00 05/14/17 09:45 Zoloft - PO 150 mg DAILY [facility] Administration Warfarin Sodium 10 mg 05/13/17 18:00 05/13/17 18:12 Coumadin - PO 10 mg DAILY@1800 [facility] Administration ASSESSMENT/PLAN: 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 He presents to the ED who presented to the ER due to positive wound cultures. The patient is a patient of Dr. Gray's wound care clinic. On 05/07/2017 he presented to the ER when he developed a RLE non-healing large superficial ulcer draining clear liquid, malodorous. His wound was cultured at the wound clinic, he was prescribed Augmentin and was sent home. He received a call from the wound clinic due to positive wound cultures, and was instructed to report to the ER. ID: Cellulitis/Infected RLE ulceration/Venous stasis A/P: Wound culture +pseudomonas + klebsiella Patient was on Augmentin outpatient, which was resistant to Augmentin Now on Vanco and Imipenem Elevated RLE at all times, wound care with alginate dressing with dewayne bandages Vascular following, ID following Tylenol with codeine, Morphine for severe pain Vascular consult Repeat blood cultures pending Hematology: Bilateral DVTs with Subtherapeutic INR A/P: On home Coumadin 7.5mg - with non compliance secondary to running out of medication In the ED he was given Coumadin 10mg and Lovenox 100mg SQ x 1, however INR remains subtherapeutic Started on Lovenox 100mg BID with Coumadin bridging Monitor INR in a.m. Psyche: Anxiety/Major Depressive Disorder - chronic A/P: Continue home medications F.E.N. Fluids: on PO Electrolytes:monitor Nutrition: regular Prophylaxis: DVT: Lovenox, Coumadin GI: Protonix Disposition: Requires inpatient hospitalization. Full code. Visit type - Emergency Visit Emergency Visit: Yes ED Registration Date: 05/13/17 Care time: The patient presented to the Emergency Department on the above date and was hospitalized for further evaluation of their emergent condition. - New Patient This patient is new to me today: No - Critical Care Critical Care patient: No - Discharge Referral Referred to [facility] No
[2017-05-14] MEDS: VANCOMYCIN 1 GRAM (PRE-DOCKED) 250 ML IVPB SCH (11:20)
[2017-05-14] MEDS: ENOXAPARIN NA (PORCINE) 100 MG/1 ML DISP.SYRIN SQ SCH ×2 (11:20→22:14)
[2017-05-14] MEDS: [UNRECOGNIZED DRUG - OTHER] PO SCH (13:50)
[2017-05-14] MEDS: WARFARIN NA 10 MG TABLET (FP) PO SCH (18:00)
[2017-05-14] MEDS: lamoTRIgine 100 MG TABLET (FP) PO SCH (22:14)
[2017-05-14] MEDS: ROSUVASTATIN CA 10 MG TABLET (FP) PO SCH (22:14)
[2017-05-14] MEDS: ALPRAZolam 2 MG TABLET PO SCH (22:15)
[2017-05-14] MEDS: VANCOMYCIN 1,000 MG in DEXTROSE 5%-WATER - 250 ML IVPB SCH (22:15)
[2017-05-15] MEDS: IMIPENEM/CILASTATIN SODIUM 500 MG in SODIUM CHLORIDE 100 ML IVPB SCH ×4 (02:37→21:05)
[2017-05-15] MEDS: ACETAMINOPHEN WITH CODEINE 300MG/30MG TABLET PO PRN ×3 (07:43→18:19)
[2017-05-15] MEDS ORDERED: PT OWN MED DRAWER 7, Y5N ONE ×4 (08:54→21:32)
[2017-05-15 08:57] LABS: INR 1.81 (0.82-1.09); PROTHROMBIN TIME (PATIENT) 20.2 SEC (9.98-11.88)
[2017-05-15] MEDS: morphine CARPU-JECT 2 MG/1 ML DISP.SYRIN IVPB PRN ×2 (08:59→16:53)
[2017-05-15 09:15] LABS: ALBUMIN 2.8 g/dl (3.4-5.0); ANION GAP 8 (8-16); CALCIUM 8.3 mg/dL (8.5-10.1); CO2 31 mmol/L (21-32); GLUCOSE,RANDOM 102 mg/dL (74-106); SGOT/AST 26 U/L (15-37); SGPT/ALT 30 U/L (12-78)
[2017-05-15 09:18] LABS: ALK PHOS 49 U/L (45-117); BILIRUBIN,TOTAL 0.4 mg/dL (0.2-1.0); CREATININE 0.9 mg/dL (0.7-1.3); TOT PROT 5.9 g/dl (6.4-8.2)
[2017-05-15 09:43] LABS: BASOPHIL 0.7 % (0-2.0); EOSINOPHIL 2.4 % (0-4.5); MCH 29.4 pg (25.7-33.7); MCHC 32.4 g/dl (32.0-35.9); MEAN CELL VOLUME 90.6 fl (80-96); MEAN PLT VOLUME 7.1 fl (7.5-11.1); NEUTROPHILS 60.6 % (42.8-82.8); PLATELET COUNT 210 K/MM3 (134-434); WHITE BLOOD COUNT 7.3 K/mm3 (4.0-10.0)
[2017-05-15] MEDS: BREXPIPRAZOLE PO SCH (11:05)
[2017-05-15] MEDS: FUROSEMIDE 40 MG TABLET (FP) PO SCH (11:05)
[2017-05-15] MEDS: SERTRALINE HCL 50 MG TABLET (FP) PO SCH (11:05)
[2017-05-15] MEDS: ENOXAPARIN NA (PORCINE) 100 MG/1 ML DISP.SYRIN SQ SCH ×2 (11:06→21:26)
[2017-05-15] MEDS: ALPRAZolam 0.25 MG TABLET PO SCH ×2 (11:06→14:40)
[2017-05-15] MEDS: VANCOMYCIN 1,000 MG in DEXTROSE 5%-WATER - 250 ML IVPB SCH ×2 (11:10→21:39)
[2017-05-15] MEDS: LISDEXAMFETAMINE DIMESYLATE 40 MG PO SCH (11:31)
--- NOTE | 2017-05-15 13:03 | PN ---
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 He has a Hx of chronic venous stasis. He has a HX of chronic ulcers that few weeks ago, which worsened hence, admitted and started on IV Imipenem and Vanco. He denies any pain, fevers. - Current Medication List Current Medications: Active Medications Acetaminophen/Codeine Phosphate (Tylenol # 3 -) 1 tab PO Q4H PRN PRN Reason: PAIN Last Admin: 05/15/17 07:43 Dose: 1 tab Alprazolam (Xanax -) 0.5 mg PO DAILY@1430 [facility] Last Admin: 05/14/17 13:49 Dose: 0.5 mg Alprazolam (Xanax -) 1 mg PO HS [facility] Last Admin: 05/14/17 22:15 Dose: 1 mg Alprazolam (Xanax -) 0.25 mg PO DAILY [facility] Last Admin: 05/15/17 11:06 Dose: 0.25 mg Enoxaparin Sodium (Lovenox -) 100 mg SQ BID [facility] Last Admin: 05/15/17 11:06 Dose: 100 mg Furosemide (Lasix -) 80 mg PO DAILY [facility] Last Admin: 05/15/17 11:05 Dose: 80 mg Imipenem/Cilastatin Sodium 500 (mg/ Sodium Chloride) 100 mls @ 100 mls/hr IVPB Q6H-IV [facility] PRN Reason: Protocol Stop: 05/16/17 21:59 Last Admin: 05/15/17 08:56 Dose: 100 mls/hr Vancomycin HCl 1,000 mg/ (Dextrose) 250 mls @ 166.667 mls/hr IVPB BID [facility] PRN Reason: Protocol Stop: 05/20/17 11:29 Last Admin: 05/15/17 11:10 Dose: 166.667 mls/hr Lamotrigine (Lamictal -) 200 mg PO HS [facility] Last Admin: 05/14/17 22:14 Dose: 200 mg Morphine Sulfate (Morphine Injection -) 2 mg IVPB Q4H PRN PRN Reason: PAIN Last Admin: 05/15/17 08:59 Dose: 2 mg Non-Formulary Medication (Lisdexamfetamine Dimesylate [Vyvanse]) 40 mg PO DAILY [facility] Last Admin: 05/15/17 11:31 Dose: 40 mg [employer] ( Brexpiprazole [ Rexulti] 0.5 Mg) 0.5 mg PO DAILY [facility] Last Admin: 05/15/17 11:05 Dose: 0.5 mg [employer]( Lisdexamfetamine Dimesylate [Vyvanse] 20 Mg) 20 mg PO DAILY@ 1430 [facility] Last Admin: 05/14/17 13:50 Dose: 20 mg Rosuvastatin Calcium (Crestor -) 10 mg PO HS [facility] Last Admin: 05/14/17 22:14 Dose: 10 mg Sertraline HCl (Zoloft -) 150 mg PO DAILY [facility] Last Admin: 05/15/17 11:05 Dose: 150 mg Warfarin Sodium (Coumadin -) 10 mg PO DAILY@1800 [facility] Last Admin: 05/14/17 18:00 Dose: 10 mg - Objective Vital Signs: Vital Signs Temperature 98.2 F 05/15/17 10:00 Pulse Rate 78 05/15/17 10:00 Respiratory Rate 18 05/15/17 10:00 Blood Pressure 126/69 05/15/17 10:00 O2 Sat by Pulse Oximetry (%) 93 L 05/14/17 21:00 Constitutional: Yes: No Distress Eyes: Yes: PERRL Cardiovascular: Yes: Regular Rate and Rhythm Respiratory: Yes: CTA Bilaterally Gastrointestinal: Yes: Normal Bowel Sounds, Soft Integumentary: Yes: Venous Stasis Changes, Other (The ulcer is much less erythematous and has NO malodor) Labs: CBC, BMP 05/15/17 07:00 05/15/17 07:00 INR, PTT INR 1.81 (0.82-1.09) H D 05/15/17 07:00 Problem List - Problems (1) Cellulitis Code(s): L03.90 - CELLULITIS, UNSPECIFIED Qualifiers: Site of cellulitis: extremity Site of cellulitis of extremity: lower extremity Laterality: right Qualified Code(s): L03.115 - Cellulitis of right lower limb (2) Venous (peripheral) insufficiency Code(s): I87.2 - VENOUS INSUFFICIENCY (CHRONIC) (PERIPHERAL) Assessment/Plan Pt with Chronic Venous insufficeincy, Venous stasis with ulceration. (R) lower extremity cellulitis. Continue current IV Abx.
[2017-05-15] MEDS: [UNRECOGNIZED DRUG - OTHER] PO SCH (14:40)
[2017-05-15] MEDS: WARFARIN NA 10 MG TABLET (FP) PO SCH (18:19)
--- NOTE | 2017-05-15 21:22 | PN ---
Physical Exam: SUBJECTIVE: Patient seen and examined at bedside. Friend Ben present. OBJECTIVE: Vital Signs Period Temp Pulse Resp BP Sys/Louise Pulse Ox Last 24 Hr 98.2 F-98.3 F 78-79 18-20 126-168/69-89 96 GENERAL: The patient is awake, alert, and fully oriented, in no acute distress. HEAD: Normal with no signs of trauma. EYES: PERRL, extraocular movements intact, sclera anicteric, conjunctiva clear. No ptosis. LUNGS: Breath sounds equal, clear to auscultation bilaterally, no wheezes, no crackles, no accessory muscle use. HEART: Regular rate and rhythm, S1, S2 without murmur, rub or gallop. ABDOMEN: Soft, nontender, nondistended, normoactive bowel sounds, no guarding, no rebound UPPER EXTREMITIES: 2+ pulses, warm, well-perfused, no edema. LOWER EXTREMITIES: NEUROLOGICAL: Cranial nerves II through XII grossly intact. Normal speech, gait not observed. PSYCH: Normal mood, normal affect. SKIN: Warm, dry, normal turgor, no rashes or lesions noted Laboratory Results - last 24 hr 05/15/17 05/15/17 05/15/17 07:00 07:00 07:00 WBC 7.3 RBC 4.21 Hgb 12.4 Hct 38.1 MCV 90.6 MCH 29.4 MCHC 32.4 RDW 14.0 Plt Count 210 MPV 7.1 L Neutrophils % 60.6 Lymphocytes % 25.7 Monocytes % 10.6 H Eosinophils % 2.4 Basophils % 0.7 INR 1.81 H D Sodium 141 Potassium 3.8 Chloride 102 Carbon Dioxide 31 Anion Gap 8 BUN 14 D Creatinine 0.9 Creat Clearance w eGFR > 60 Random Glucose 102 Calcium 8.3 L Total Bilirubin 0.4 AST 26 ALT 30 Alkaline Phosphatase 49 Total Protein 5.9 L Albumin 2.8 L Active Medications Generic Name Dose Route Start Last Admin Trade Name Freq PRN Reason Stop Dose Admin Acetaminophen/Codeine Phosphate 1 tab 05/14/17 11:36 05/15/17 18:19 Tylenol # 3 - PO 1 tab Q4H PRN Administration PAIN Alprazolam 0.5 mg 05/13/17 14:30 05/15/17 14:40 Xanax - PO 0.5 mg DAILY@1430 [facility] Administration Alprazolam 1 mg 05/13/17 22:00 05/14/17 22:15 Xanax - PO 1 mg HS [facility] Administration Alprazolam 0.25 mg 05/14/17 10:00 05/15/17 11:06 Xanax - PO 0.25 mg DAILY [facility] Administration Enoxaparin Sodium 100 mg 05/14/17 11:00 05/15/17 11:06 Lovenox - SQ 100 mg BID [facility] Administration Furosemide 80 mg 05/13/17 10:00 05/15/17 11:05 Lasix - PO 80 mg DAILY [facility] Administration Imipenem/Cilastatin Sodium 500 100 mls @ 100 mls/hr 05/13/17 12:00 05/15/17 14: 40 mg/ Sodium Chloride IVPB 05/16/17 21:59 100 mls/hr Q6H-IV [facility] Administration Protocol Vancomycin HCl 1,000 mg/ 250 mls @ 166.667 mls/hr 05/14/17 22:00 05/15/17 11:10 Dextrose IVPB 05/20/17 11:29 166.667 mls/hr BID [facility] Administration Protocol Lamotrigine 200 mg 05/13/17 23:00 05/14/17 22:14 Lamictal - PO 200 mg HS [facility] Administration Morphine Sulfate 2 mg 05/13/17 15:47 05/15/17 16:53 Morphine Injection - IVPB 2 mg Q4H PRN Administration PAIN Non-Formulary Medication 40 mg 05/14/17 10:00 05/15/17 11:31 Lisdexamfetamine Dimesylate [Vyvanse] PO 40 mg DAILY [facility] Administration P[employer] Own Med ( 0.5 mg 05/14/17 10:00 05/15/17 11:05 Brexpiprazole [ PO 0.5 mg Rexulti] 0.5 Mg) DAILY [facility] Administration [employer]( 20 mg 05/14/17 14:30 05/15/17 14:40 Lisdexamfetamine PO 20 mg Dimesylate [Vyvanse] DAILY@1430 [facility] Administration 20 Mg) Rosuvastatin Calcium 10 mg 05/13/17 22:00 05/14/17 22:14 Crestor - PO 10 mg HS [facility] Administration Sertraline HCl 150 mg 05/13/17 10:00 05/15/17 11:05 Zoloft - PO 150 mg DAILY [facility] Administration Warfarin Sodium 10 mg 05/13/17 18:00 05/15/17 18:19 Coumadin - PO 10 mg DAILY@1800 [facility] Administration ASSESSMENT/PLAN 66 year-old male with a PMH significant for chronic bilateral lower extremity venous insufficiency, h/o non-healing venous stasis ulcers, 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 Admitted for cellulities of RLE. RLE cellulitis Non-healing RLE venous stasis ulceration Bilateral lower extremity venous insufficiency --failed outpatient treatment with augmentin --05/07 wound culture: Klebsiella ESBL, pseudomonas, staph aureus, E. faecalis --continue Vanc and imipenem h/o Bilateral DVTs --continue full dose lovenox --dose coumadin 10mg tonight --INR 1.8 today, recheck tomorrow Depression --continue home meds F/E/N Fluids: PO intake adequate Electrolytes: replete as indicated Nutrition: regular DVT prophylaxis: on full dose lovenox bridging to coumadin PT eval Daily PT Dispo: continues to require inpatient care. Full code. Visit type - Emergency Visit Emergency Visit: Yes ED Registration Date: 05/13/17 Care time: The patient presented to the Emergency Department on the above date and was hospitalized for further evaluation of their emergent condition. - New Patient This patient is new to me today: Yes Date on this admission: 05/15/17 - Critical Care Critical Care patient: No
[2017-05-15] MEDS: ALPRAZolam 2 MG TABLET PO SCH (21:24)
[2017-05-15] MEDS: ROSUVASTATIN CA 10 MG TABLET (FP) PO SCH (21:26)
[2017-05-15] MEDS: lamoTRIgine 100 MG TABLET (FP) PO SCH (21:38)
[2017-05-16] MEDS: ACETAMINOPHEN WITH CODEINE 300MG/30MG TABLET PO PRN ×4 (00:15→20:13)
[2017-05-16] MEDS ORDERED: PT OWN MED DRAWER 7, Y5N ONE ×9 (00:26→22:06)
[2017-05-16] MEDS: IMIPENEM/CILASTATIN SODIUM 500 MG in SODIUM CHLORIDE 100 ML IVPB SCH ×4 (02:59→21:03)
[2017-05-16 08:16] LABS: EOSINOPHIL 3.3 % (0-4.5); MEAN CELL VOLUME 91.1 fl (80-96); MEAN PLT VOLUME 7.2 fl (7.5-11.1); NEUTROPHILS 51.1 % (42.8-82.8); PLATELET COUNT 185 K/MM3 (134-434); RDW 14.4 % (11.9-15.9); WHITE BLOOD COUNT 5.5 K/mm3 (4.0-10.0)
[2017-05-16 08:24] LABS: INR 2.58 (0.82-1.09); PROTHROMBIN TIME (PATIENT) 28.9 SEC (9.98-11.88)
[2017-05-16 08:45] LABS: ALBUMIN 2.8 g/dl (3.4-5.0); ANION GAP 5 (8-16); CO2 33 mmol/L (21-32); GLUCOSE,RANDOM 102 mg/dL (74-106)
[2017-05-16 09:02] LABS: ALK PHOS 52 U/L (45-117); BILIRUBIN,TOTAL 0.6 mg/dL (0.2-1.0); CALCIUM 8.3 mg/dL (8.5-10.1); MAGNESIUM 2.3 mg/dL (1.8-2.4); SGOT/AST 33 U/L (15-37); SGPT/ALT 35 U/L (12-78); TOT PROT 5.9 g/dl (6.4-8.2)
[2017-05-16] MEDS: BREXPIPRAZOLE PO SCH (09:54)
[2017-05-16] MEDS: LISDEXAMFETAMINE DIMESYLATE 40 MG PO SCH (09:54)
[2017-05-16] MEDS: FUROSEMIDE 40 MG TABLET (FP) PO SCH (09:54)
[2017-05-16] MEDS: ALPRAZolam 0.25 MG TABLET PO SCH ×2 (09:54→14:10)
[2017-05-16] MEDS: SERTRALINE HCL 50 MG TABLET (FP) PO SCH (09:54)
[2017-05-16] MEDS: VANCOMYCIN 1,000 MG in DEXTROSE 5%-WATER - 250 ML IVPB SCH ×2 (11:22→21:17)
[2017-05-16] MEDS: [UNRECOGNIZED DRUG - OTHER] PO SCH (14:10)
--- NOTE | 2017-05-16 17:25 | PN ---
Physical Exam: SUBJECTIVE: Patient seen and examined at bedside. OBJECTIVE: Vital Signs Period Temp Pulse Resp BP Sys/Louise Pulse Ox Last 24 Hr 97.7 F-98.3 F 72-88 18-20 124-138/67-89 96-96 GENERAL: The patient is awake, alert, and fully oriented, in no acute distress. HEAD: Normal with no signs of trauma. EYES: PERRL, extraocular movements intact, sclera anicteric, conjunctiva clear. No ptosis. LUNGS: Breath sounds equal, clear to auscultation bilaterally, no wheezes, no crackles, no accessory muscle use. HEART: Regular rate and rhythm, S1, S2 without murmur, rub or gallop. ABDOMEN: Soft, nontender, nondistended, normoactive bowel sounds, no guarding, no rebound UPPER EXTREMITIES: 2+ pulses, warm, well-perfused, no edema. LOWER EXTREMITIES: RLE wound visualized; anterior and wrapping around to medial side, beefy red, ~20 slough in wound bed, moderate drainage, no odor NEUROLOGICAL: Cranial nerves II through XII grossly intact. Normal speech, gait not observed. Laboratory Results - last 24 hr 05/16/17 05/16/17 05/16/17 07:00 07:00 07:00 WBC 5.5 RBC 3.99 L Hgb 12.0 Hct 36.3 MCV 91.1 MCH 30.0 MCHC 33.0 RDW 14.4 Plt Count 185 MPV 7.2 L Neutrophils % 51.1 Lymphocytes % 32.5 D Monocytes % 12.1 H Eosinophils % 3.3 Basophils % 1.0 INR 2.58 H D Sodium 140 Potassium 3.7 Chloride 102 Carbon Dioxide 33 H Anion Gap 5 L BUN 17 D Creatinine 1.0 Creat Clearance w eGFR > 60 Random Glucose 102 Calcium 8.3 L Magnesium 2.3 D Total Bilirubin 0.6 D AST 33 D ALT 35 Alkaline Phosphatase 52 Total Protein 5.9 L Albumin 2.8 L Active Medications Generic Name Dose Route Start Last Admin Trade Name Freq PRN Reason Stop Dose Admin Acetaminophen/Codeine Phosphate 1 tab 05/14/17 11:36 05/16/17 09:54 Tylenol # 3 - PO 1 tab Q4H PRN Administration PAIN Alprazolam 0.5 mg 05/13/17 14:30 05/16/17 14:10 Xanax - PO 0.5 mg DAILY@1430 [facility] Administration Alprazolam 1 mg 05/13/17 22:00 05/15/17 21:24 Xanax - PO 1 mg HS [facility] Administration Alprazolam 0.25 mg 05/14/17 10:00 05/16/17 09:54 Xanax - PO 0.25 mg DAILY [facility] Administration Furosemide 80 mg 05/13/17 10:00 05/16/17 09:54 Lasix - PO 80 mg DAILY [facility] Administration Imipenem/Cilastatin Sodium 500 100 mls @ 100 mls/hr 05/13/17 12:00 05/16/17 14: 10 mg/ Sodium Chloride IVPB 05/16/17 21:59 100 mls/hr Q6H-IV [facility] Administration Protocol Vancomycin HCl 1,000 mg/ 250 mls @ 166.667 mls/hr 05/14/17 22:00 05/16/17 11:22 Dextrose IVPB 05/20/17 11:29 166.667 mls/hr BID [facility] Administration Protocol Lamotrigine 200 mg 05/13/17 23:00 05/15/17 21:38 Lamictal - PO 200 mg HS [facility] Administration Non-Formulary Medication 40 mg 05/14/17 10:00 05/16/17 09:54 Lisdexamfetamine Dimesylate [Vyvanse] PO 40 mg DAILY [facility] Administration Pnt's Own Med ( 0.5 mg 05/14/17 10:00 05/16/17 09:54 Brexpiprazole [ PO 0.5 mg Rexulti] 0.5 Mg) DAILY [facility] Administration [employer] Med( 20 mg 05/14/17 14:30 05/16/17 14:10 Lisdexamfetamine PO 20 mg Dimesylate [Vyvanse] DAILY@1430 [facility] Administration 20 Mg) Rosuvastatin Calcium 10 mg 05/13/17 22:00 05/15/17 21:26 Crestor - PO 10 mg HS [facility] Administration Sertraline HCl 150 mg 05/13/17 10:00 05/16/17 09:54 Zoloft - PO 150 mg DAILY [facility] Administration Warfarin Sodium 10 mg 05/13/17 18:00 05/15/17 18:19 Coumadin - PO 10 mg DAILY@1800 [facility] Administration ASSESSMENT/PLAN 66 year-old male with a PMH significant for chronic bilateral lower extremity venous insufficiency, h/o non-healing venous stasis ulcers, 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 Admitted for cellulities of RLE. RLE cellulitis Non-healing RLE venous stasis ulceration Bilateral lower extremity venous insufficiency --failed outpatient treatment with augmentin --05/07 wound culture: Klebsiella ESBL, pseudomonas, staph aureus, E. faecalis --continue Vanc and imipenem h/o Bilateral DVTs --INR 2.58 today, d/c lovenox --dose coumadin tonight Depression --continue home meds F/E/N Fluids: PO intake adequate Electrolytes: replete as indicated Nutrition: regular DVT prophylaxis: INR therapeutic on coumadin PT eval Daily PT Dispo: continues to require inpatient care. Full code. Visit type - Emergency Visit Emergency Visit: Yes ED Registration Date: 05/13/17 Care time: The patient presented to the Emergency Department on the above date and was hospitalized for further evaluation of their emergent condition. - New Patient This patient is new to me today: No - Critical Care Critical Care patient: No
[2017-05-16] MEDS: WARFARIN NA 10 MG TABLET (FP) PO SCH (18:05)
[2017-05-16] MEDS: ROSUVASTATIN CA 10 MG TABLET (FP) PO SCH (21:17)
[2017-05-16] MEDS: ALPRAZolam 2 MG TABLET PO SCH (21:17)
[2017-05-16] MEDS: lamoTRIgine 100 MG TABLET (FP) PO SCH (21:19)
[2017-05-17] MEDS ORDERED: PT OWN MED DRAWER 7, Y5N ONE ×3 (01:53→19:46)
[2017-05-17] MEDS ORDERED: ACETAMINOPHEN 325 MG TABLET (FP) PO PRN (07:54)
[2017-05-17] MEDS ORDERED: oxyCODONE HCL 5 MG TABLET PO PRN (07:54)
[2017-05-17] MEDS: FUROSEMIDE 40 MG TABLET (FP) PO SCH (10:40)
[2017-05-17] MEDS: BREXPIPRAZOLE PO SCH (10:40)
[2017-05-17] MEDS: SERTRALINE HCL 50 MG TABLET (FP) PO SCH (10:41)
[2017-05-17] MEDS: VANCOMYCIN 1,000 MG in DEXTROSE 5%-WATER - 250 ML IVPB SCH ×3 (10:42→22:22)
[2017-05-17] MEDS: ALPRAZolam 0.25 MG TABLET PO SCH ×2 (10:58→14:31)
[2017-05-17] MEDS: LISDEXAMFETAMINE DIMESYLATE 40 MG PO SCH (11:06)
[2017-05-17] MEDS: [UNRECOGNIZED DRUG - OTHER] PO SCH (14:31)
--- NOTE | 2017-05-17 15:44 | PN ---
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 He has a Hx of chronic venous stasis. He has a HX of chronic ulcers that few weeks ago, which worsened hence, admitted and started on IV Imipenem and Vanco. He denies any pain, fevers. - Current Medication List Current Medications: Active Medications Acetaminophen (Tylenol -) 650 mg PO Q6H PRN PRN Reason: FEVER OR PAIN Alprazolam (Xanax -) 0.5 mg PO DAILY@1430 [facility] Last Admin: 05/17/17 14:31 Dose: 0.5 mg Alprazolam (Xanax -) 1 mg PO [facility] Last Admin: 05/16/17 21:17 Dose: 1 mg Alprazolam (Xanax -) 0.25 mg PO DAILY [facility] Last Admin: 05/17/17 10:58 Dose: 0.25 mg Furosemide (Lasix -) 80 mg PO DAILY [facility] Last Admin: 05/17/17 10:40 Dose: 80 mg Vancomycin HCl 1,000 mg/ (Dextrose) 250 mls @ 166.667 mls/hr IVPB BID [facility] PRN Reason: Protocol Stop: 05/20/17 11:29 Last Admin: 05/17/17 13:52 Dose: 166.667 mls/hr Lamotrigine (Lamictal -) 200 mg PO [facility] Last Admin: 05/16/17 21:19 Dose: 200 mg Non-Formulary Medication (Lisdexamfetamine Dimesylate [Vyvanse]) 40 mg PO DAILY [facility] Last Admin: 05/17/17 11:06 Dose: 40 mg [employer] [facility] ( Brexpiprazole [ Rexulti] 0.5 Mg) 0.5 mg PO DAILY [facility] Last Admin: 05/17/17 10:40 Dose: 0.5 mg [employer] [facility]( Lisdexamfetamine Dimesylate [Vyvanse] 20 Mg) 20 mg PO DAILY@ 1430 [facility] Last Admin: 05/17/17 14:31 Dose: 20 mg Oxycodone HCl (Roxicodone -) 5 mg PO Q6H PRN PRN Reason: PAIN Rosuvastatin Calcium (Crestor -) 10 mg PO [facility] Last Admin: 05/16/17 21:17 Dose: 10 mg Sertraline HCl (Zoloft -) 150 mg PO DAILY [facility] Last Admin: 05/17/17 10:41 Dose: 150 mg Warfarin Sodium (Coumadin -) 5 mg PO DAILY@1800 [facility] - Objective Vital Signs: Vital Signs Temperature 98.1 F 05/17/17 15:00 Pulse Rate 87 05/17/17 15:00 Respiratory Rate 20 05/17/17 15:00 Blood Pressure 114/79 05/17/17 15:00 O2 Sat by Pulse Oximetry (%) 98 05/16/17 21:00 Constitutional: Yes: No Distress Cardiovascular: Yes: Regular Rate and Rhythm Respiratory: Yes: Regular, CTA Bilaterally Gastrointestinal: Yes: Normal Bowel Sounds, Soft Extremities: Yes: Other (Intact dressing (R) leg) Labs: CBC, BMP 05/16/17 07:00 05/16/17 07:00 INR, PTT INR 2.58 (0.82-1.09) H D 05/16/17 07:00 Problem List - Problems (1) Cellulitis Code(s): L03.90 - CELLULITIS, UNSPECIFIED Qualifiers: Site of cellulitis: extremity Site of cellulitis of extremity: lower extremity Laterality: right Qualified Code(s): L03.115 - Cellulitis of right lower limb (2) Venous (peripheral) insufficiency Code(s): I87.2 - VENOUS INSUFFICIENCY (CHRONIC) (PERIPHERAL) Assessment/Plan Pt with Chronic Venous insufficeincy, Venous stasis with ulceration. (R) lower extremity cellulitis. Can Rx PO Levaquin 500 mg q 24 X 14 days Follow-up as outpatient.
[2017-05-17 16:21] LABS: INR 2.78 (0.82-1.09); PROTHROMBIN TIME (PATIENT) 31.2 SEC (9.98-11.88)
--- NOTE | 2017-05-17 16:58 | PN ---
Physical Exam: SUBJECTIVE: Patient seen and examined at bedside. Has been walking up and down 75 foot hallway, minimal pain. OBJECTIVE: Vital Signs Period Temp Pulse Resp BP Sys/Louise Pulse Ox Last 24 Hr 97.9 F-98.1 F 70-89 20-20 114-131/69-79 98 GENERAL: The patient is awake, alert, and fully oriented, in no acute distress. HEAD: Normal with no signs of trauma. EYES: PERRL, extraocular movements intact, sclera anicteric, conjunctiva clear. No ptosis. LUNGS: Breath sounds equal, clear to auscultation bilaterally, no wheezes, no crackles, no accessory muscle use. HEART: Regular rate and rhythm, S1, S2 without murmur, rub or gallop. ABDOMEN: Soft, nontender, nondistended, normoactive bowel sounds, no guarding, no rebound UPPER EXTREMITIES: 2+ pulses, warm, well-perfused, no edema. LOWER EXTREMITIES: RLE wound not visualized NEUROLOGICAL: Cranial nerves II through XII grossly intact. Normal speech, gait not observed. Laboratory Results - last 24 hr 05/17/17 15:40 INR 2.78 H Active Medications Generic Name Dose Route Start Last Admin Trade Name Freq PRN Reason Stop Dose Admin Acetaminophen 650 mg 05/17/17 07:54 Tylenol - PO Q6H PRN FEVER OR PAIN Alprazolam 0.5 mg 05/13/17 14:30 05/17/17 14:31 Xanax - PO 0.5 mg DAILY@1430 [facility] Administration Alprazolam 1 mg 05/13/17 22:00 05/16/17 21:17 Xanax - PO 1 mg HS [facility] Administration Alprazolam 0.25 mg 05/14/17 10:00 05/17/17 10:58 Xanax - PO 0.25 mg DAILY [facility] Administration Furosemide 80 mg 05/13/17 10:00 05/17/17 10:40 Lasix - PO 80 mg DAILY [facility] Administration Vancomycin HCl 1,000 mg/ 250 mls @ 166.667 mls/hr 05/14/17 22:00 05/17/17 13:52 Dextrose IVPB 05/20/17 11:29 166.667 mls/hr BID [facility] Administration Protocol Imipenem/Cilastatin Sodium 250 100 mls @ 100 mls/hr 05/17/17 21:00 mg/ Sodium Chloride IVPB Q6H-IV [facility] Protocol Lamotrigine 200 mg 05/13/17 23:00 05/16/17 21:19 Lamictal - PO 200 mg HS [facility] Administration Non-Formulary Medication 40 mg 05/14/17 10:00 05/17/17 11:06 Lisdexamfetamine Dimesylate [Vyvanse] PO 40 mg DAILY [facility] Administration Pnt's Own Med ( 0.5 mg 05/14/17 10:00 05/17/17 10:40 Brexpiprazole [ PO 0.5 mg Rexulti] 0.5 Mg) DAILY [facility] Administration [employer] Med( 20 mg 05/14/17 14:30 05/17/17 14:31 Lisdexamfetamine PO 20 mg Dimesylate [Vyvanse] DAILY@1430 [facility] Administration 20 Mg) Oxycodone HCl 5 mg 05/17/17 07:54 Roxicodone - PO Q6H PRN PAIN Rosuvastatin Calcium 10 mg 05/13/17 22:00 05/16/17 21:17 Crestor - PO 10 mg HS [facility] Administration Sertraline HCl 150 mg 05/13/17 10:00 05/17/17 10:41 Zoloft - PO 150 mg DAILY [facility] Administration Warfarin Sodium 5 mg 05/17/17 18:00 Coumadin - PO DAILY@1800 [facility] ASSESSMENT/PLAN 66 year-old male with a PMH significant for chronic bilateral lower extremity venous insufficiency, h/o non-healing venous stasis ulcers, 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 Admitted for cellulities of RLE. RLE cellulitis Non-healing RLE venous stasis ulceration Bilateral lower extremity venous insufficiency --05/07 wound culture: Klebsiella ESBL, pseudomonas, staph aureus, E. faecalis --continue Vanc and imipenem; needs 2 more weeks of therapy --will discuss abx choices with Dr. Cárdenas to see if patient can switch to daily dosing drugs, get a PICC line, and go to outpatient perfusion center --vanc trough ordered for tonight h/o Bilateral DVTs --INR 2.78 today --dose coumadin 5mg tonight Depression --continue home meds F/E/N Fluids: PO intake adequate Electrolytes: replete as indicated Nutrition: regular DVT prophylaxis: INR therapeutic on coumadin PT eval Daily PT Dispo: continues to require inpatient care. Possible PICC line tomorrow. Full code. Visit type - Emergency Visit Emergency Visit: Yes ED Registration Date: 05/13/17 Care time: The patient presented to the Emergency Department on the above date and was hospitalized for further evaluation of their emergent condition. - New Patient This patient is new to me today: No - Critical Care Critical Care patient: No
[2017-05-17] MEDS: WARFARIN NA 5 MG TABLET (UD) PO SCH (18:07)
[2017-05-17] MEDS: IMIPENEM/CILASTATIN SODIUM 250 MG in SODIUM CHLORIDE 100 ML IVPB SCH (21:45)
[2017-05-17] MEDS: lamoTRIgine 100 MG TABLET (FP) PO SCH (21:46)
[2017-05-17] MEDS: ROSUVASTATIN CA 10 MG TABLET (FP) PO SCH (21:48)
[2017-05-17] MEDS: ALPRAZolam 2 MG TABLET PO SCH (21:55)
[2017-05-18] MEDS: IMIPENEM/CILASTATIN SODIUM 250 MG in SODIUM CHLORIDE 100 ML IVPB SCH ×2 (02:23→14:31)
[2017-05-18] MEDS: SERTRALINE HCL 50 MG TABLET (FP) PO SCH (11:18)
[2017-05-18] MEDS: BREXPIPRAZOLE PO SCH (11:18)
[2017-05-18] MEDS: FUROSEMIDE 40 MG TABLET (FP) PO SCH (11:18)
[2017-05-18 11:19] LABS: INR 2.65 (0.82-1.09); PROTHROMBIN TIME (PATIENT) 29.7 SEC (9.98-11.88)
[2017-05-18] MEDS: VANCOMYCIN 1,000 MG in DEXTROSE 5%-WATER - 250 ML IVPB SCH (11:20)
[2017-05-18] MEDS: ALPRAZolam 0.25 MG TABLET PO SCH ×2 (11:20→14:29)
[2017-05-18] MEDS: LISDEXAMFETAMINE DIMESYLATE 40 MG PO SCH (11:20)
[2017-05-18] MEDS ORDERED: PICC LINE 8 ML FLUSH PROTOCOL IVPUSH PRN (11:42)
[2017-05-18] MEDS ORDERED: IMIPENEM/CILASTATIN SODIUM 250 MG in SODIUM CHLORIDE 100 ML IVPB SCH (12:54)
--- NOTE | 2017-05-18 13:14 | DS ---
Physical Exam: SUBJECTIVE: Patient seen and examined at bedside. Leg feels better, voices no complaints. OBJECTIVE: Vital Signs Period Temp Pulse Resp BP Sys/Louise Pulse Ox Last 24 Hr 97.9 F-98.2 F 72-88 18-20 114-133/69-79 PHYSICAL EXAM GENERAL: The patient is awake, alert, and fully oriented, in no acute distress. HEAD: Normal with no signs of trauma. EYES: PERRL, extraocular movements intact, sclera anicteric, conjunctiva clear. No ptosis. LUNGS: Breath sounds equal, clear to auscultation bilaterally, no wheezes, no crackles, no accessory muscle use. HEART: Regular rate and rhythm, S1, S2 without murmur, rub or gallop. ABDOMEN: Soft, nontender, nondistended, normoactive bowel sounds, no guarding, no rebound UPPER EXTREMITIES: 2+ pulses, warm, well-perfused, no edema. LOWER EXTREMITIES: RLE wound not visualized NEUROLOGICAL: Cranial nerves II through XII grossly intact. Normal speech, gait not observed. LABS Current Medications Generic Name Dose Route Start Last Admin Trade Name Freq PRN Reason Stop Dose Admin Acetaminophen 650 mg 05/17/17 07:54 Tylenol - PO Q6H PRN FEVER OR PAIN Alprazolam 0.5 mg 05/13/17 14:30 05/18/17 14:29 Xanax - PO 0.5 mg DAILY@1430 [facility] Administration Alprazolam 1 mg 05/13/17 22:00 05/17/17 21:55 Xanax - PO 1 mg HS [facility] Administration Alprazolam 0.25 mg 05/14/17 10:00 05/18/17 11:20 Xanax - PO 0.25 mg DAILY [facility] Administration Furosemide 80 mg 05/13/17 10:00 05/18/17 11:18 Lasix - PO 80 mg DAILY [facility] Administration IV Flush 8 ml 05/18/17 11:42 Picc Line Flush IVPUSH PRN PRN Protocol Vancomycin HCl 1,000 mg/ 250 mls @ 166.667 mls/hr 05/14/17 22:00 05/18/17 11:20 Dextrose IVPB 05/20/17 11:29 166.667 mls/hr BID [facility] Administration Protocol Imipenem/Cilastatin Sodium 250 100 mls @ 100 mls/hr 05/18/17 12:54 mg/ Sodium Chloride IVPB Q6H-IV [facility] Protocol Gentamicin Sulfate 240 mg/ 256 mls @ 250 mls/hr 05/19/17 10:00 Dextrose IVPB DAILY [facility] Lamotrigine 200 mg 05/13/17 23:00 05/17/17 21:46 Lamictal - PO 200 mg HS [facility] Administration Non-Formulary Medication 40 mg 05/14/17 10:00 05/18/17 11:20 Lisdexamfetamine Dimesylate [Vyvanse] PO 40 mg DAILY [facility] Administration Pnt's Own Med ( 0.5 mg 05/14/17 10:00 05/18/17 11:18 Brexpiprazole [ PO 0.5 mg Rexulti] 0.5 Mg) DAILY [facility] Administration P[employer] Own Med( 20 mg 05/14/17 14:30 05/18/17 14:29 Lisdexamfetamine PO 20 mg Dimesylate [Vyvanse] DAILY@1430 [facility] Administration 20 Mg) Rosuvastatin Calcium 10 mg 05/13/17 22:00 05/17/17 21:48 Crestor - PO 10 mg HS [facility] Administration Sertraline HCl 150 mg 05/13/17 10:00 05/18/17 11:18 Zoloft - PO 150 mg DAILY [facility] Administration Warfarin Sodium 5 mg 05/17/17 18:00 05/17/17 18:07 Coumadin - PO 5 mg DAILY@1800 [facility] Administration HOSPITAL COURSE: Date of Admission:05/13/17 Date of Discharge: 05/18/17 66 year-old male with a PMH significant for chronic bilateral lower extremity venous insufficiency, h/o non-healing venous stasis ulcers, 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 Admitted for cellulities of RLE. RLE cellulitis Non-healing RLE venous stasis ulceration Bilateral lower extremity venous insufficiency --05/07 wound culture: Klebsiella ESBL, pseudomonas, staph aureus, E. faecalis --Vanc (05/13-->05/18); imipenem (05/13-->05/18); discharged with script for linezolid PO x 7 days and plans for IV infusion of gentamicin x 7 days at the outpatient infusion center --PICC line placement h/o Bilateral DVTs --INR 2.78 today --coumadin 5mg daily Depression --continued home meds Minutes to complete discharge: 35 Discharge Summary Reason For Visit: CELLULITIS/(KLEB/MRSA) Current Active Problems Cellulitis (Acute) Venous (peripheral) insufficiency (Acute) Condition: Improved - Instructions Diet, Activity, Other Instructions: 1. You will need to return to the infusion center starting on 05/19/17 to complete 7 days of IV antibiotic therapy. 2. You will need to take an oral antibiotic starting on 05/19/17 for 7 days. A prescription has been sent to your pharmacy. 3. Prescriptions have been sent to your pharamcy for wound dressing supplies: xerofoam, dry gauze pads, gauze cling wrapping, tape. 4. You are STRONGLY ENCOURAGED to follow up with the [facility] on the fifth floor of the hospital. Please call tomorrow morning to make an appointment. Referrals: Wilbert Slade [Primary Care Provider] - Disposition: HOME - Home Medications Comprehensive Discharge Medication List: Ambulatory Orders Crestor - 10 mg PO DAILY 04/30/17 Alprazolam 0.5 mg PO BID 05/13/17 Alprazolam 1 mg PO HS 05/13/17 Brexpiprazole [Rexulti] 0.5 mg PO DAILY 05/13/17 Furosemide [Lasix] 80 mg PO DAILY 05/13/17 Lamotrigine [Lamictal -] 200 mg PO HS 05/13/17 Lisdexamfetamine Dimesylate [Vyvanse] 20 mg PO DAILY 05/13/17 Lisdexamfetamine Dimesylate [Vyvanse] 40 mg PO DAILY 05/13/17 Sertraline HCl [Zoloft] 150 mg PO DAILY 05/13/17 Bismuth Tribromoph/Petrolatum [Xeroform Petrolatum Dress] 1 each TP DAILY #1 box 05/17/17 Gauze Bandage [Gauze Pads] 1 each TP DAILY #1 box 05/17/17 Gauze Bandage [Gauze] 1 each TP DAILY #10 bandage 05/17/17 Warfarin Na [Coumadin -] 5 mg PO DAILY@1800 #30 tablet 05/17/17 Linezolid [Zyvox] 600 mg PO BID #14 tablet 05/18/17 This patient is new to me today: No Emergency Visit: Yes ED Registration Date: 05/13/17 Care time: The patient presented to the Emergency Department on the above date and was hospitalized for further evaluation of their emergent condition. Critical Care patient: No - Discharge Referral Referred to [facility] Med [facility] No
[2017-05-18 13:23] VITALS: BP 133/73; PULSE 76; TEMP 98.2
[2017-05-18] MEDS: [UNRECOGNIZED DRUG - OTHER] PO SCH (14:29)
[2017-05-18] MEDS ORDERED: PT OWN MED DRAWER 7, Y5N ONE ×2 (15:26→18:05)
[2017-05-18] MEDS: WARFARIN NA 5 MG TABLET (UD) PO SCH (18:12)
[2017-05-19] MEDS ORDERED: GENTAMICIN INJECTION 240 MG in DEXTROSE 5%-WATER - 250 ML IVPB SCH (10:00)
== END 2017-05-18 20:01 | disposition home or self-care (01) | DRG 603 ==
LOC: JER 19:37 → JERBED 05-13 00:17 → UNDOADMIN 05-13 00:50 → J8W 05-13 14:29
PROVIDERS: ADMIT Internal Medicine; ATTEND Nurse Practitioner Acute Care
PROC: 02HV33Z Insertion of Infusion Device into Superior Vena Cava, Percutaneous Approach (ICD-10-PCS; principal; 2017-05-18)
DX: L03.115 Cellulitis of right lower limb (principal); L97.819 Non-pressure chronic ulcer of other part of right lower leg with unspecified severity; Z86.718 Personal history of other venous thrombosis and embolism; E78.00 Pure hypercholesterolemia, unspecified; F32.89 Other specified depressive episodes; I83.019 Varicose veins of right lower extremity with ulcer of unspecified site; I73.89 Other specified peripheral vascular diseases; F41.8 Other specified anxiety disorders; Z79.01 Long term (current) use of anticoagulants; Z86.73 Personal history of transient ischemic attack (TIA), and cerebral infarction without residual deficits; Z85.46 Personal history of malignant neoplasm of prostate; Z91.14 Patient's other noncompliance with medication regimen
CPT/HCPCS: 36415; 36569; 71010-TC; 75710-TC; 77001-TC; 80048; 80053; 83735; 85025; 85610; 85651; 86140; 87040; 87081; 93005; 93010; 97116-GP; 97161-GP; 99282-25; C1751; G0480; Q9967

== ENCOUNTER 2017-05-19 11:46 | Day surgery (SDC) | payer OTHER ==
[2017-05-19] MEDS ORDERED: GENTAMICIN IVPB ONE (12:45)
[2017-05-19] MEDS ORDERED: SODIUM CHLORIDE IVPB ONE (12:45)
[2017-05-19 12:56] VITALS: TEMP 98.3
[2017-05-19 14:13] VITALS: BP 123/73; PULSE 76
== END 2017-05-19 14:15 | disposition home or self-care (01) ==
LOC: JINFUSION 11:46
PROVIDERS: ATTEND Nurse Practitioner Acute Care
DX: L03.115 Cellulitis of right lower limb (principal)
CPT/HCPCS: 96365; 96366

== ENCOUNTER 2017-05-20 11:18 | Day surgery (SDC) | payer OTHER ==
[2017-05-20] MEDS ORDERED: GENTAMICIN SO4 80 MG/2 ML VIAL ONE (11:54)
[2017-05-20] MEDS ORDERED: SODIUM CHLORIDE IVPB ONE (12:00)
[2017-05-20] MEDS ORDERED: GENTAMICIN IVPB ONE (12:00)
[2017-05-20 12:37] VITALS: TEMP 98.2
[2017-05-20 14:21] VITALS: BP 120/70; PULSE 74
== END 2017-05-20 13:20 | disposition home or self-care (01) ==
LOC: JINFUSION 11:18
PROVIDERS: ATTEND Nurse Practitioner Acute Care
DX: L03.115 Cellulitis of right lower limb (principal)
CPT/HCPCS: 96365; 96366

== ENCOUNTER → 2017-05-21 | Day surgery (SDC) | payer OTHER ==
[~2017-05-21] MED LIST: GENTAMICIN IVPB ONE; GENTAMICIN SO4 80 MG/2 ML VIAL ONE; SODIUM CHLORIDE IVPB ONE
[2017-05-21 13:28] LABS: BASOPHIL 0.9 % (0-2.0); EOSINOPHIL 2.3 % (0-4.5); MCHC 33.3 g/dl (32.0-35.9); MEAN PLT VOLUME 8.1 fl (7.5-11.1); NEUTROPHILS 64.2 % (42.8-82.8); PLATELET COUNT 176 K/MM3 (134-434); RDW 14.4 % (11.9-15.9); WHITE BLOOD COUNT 7.3 K/mm3 (4.0-10.0)
[2017-05-21 13:42] LABS: ANION GAP 10 (8-16); CALCIUM 8.9 mg/dL (8.5-10.1); CO2 30 mmol/L (21-32); CREATININE 1.2 mg/dL (0.7-1.3); GLUCOSE,RANDOM 124 mg/dL (74-106)
[2017-05-21 14:04] VITALS: BP 120/70; PULSE 80
== END | disposition home or self-care (01) ==
LOC: JINFUSION 12:16
PROVIDERS: ATTEND Nurse Practitioner Acute Care
DX: L03.115 Cellulitis of right lower limb (principal)
CPT/HCPCS: 36415; 80048; 85025; 96365; 96366

== ENCOUNTER 2017-05-22 12:46 | Day surgery (SDC) | payer OTHER ==
[2017-05-22] MEDS ORDERED: SODIUM CHLORIDE IVPB ONE (13:15)
[2017-05-22] MEDS ORDERED: GENTAMICIN IVPB ONE (13:15)
[2017-05-22 16:16] VITALS: BP 132/79; PULSE 95
[2017-05-22 16:18] VITALS: TEMP 98.3
== END 2017-05-22 16:26 | disposition home or self-care (01) ==
LOC: JINFUSION 12:46 → J7W 12:46 → JINFUSION 16:26
PROVIDERS: ATTEND Nurse Practitioner Acute Care
DX: L03.115 Cellulitis of right lower limb (principal)
CPT/HCPCS: 96365

== ENCOUNTER 2017-05-23 17:18 | Day surgery (SDC) | payer OTHER ==
[2017-05-23 17:44] VITALS: BP 138/75; PULSE 100; TEMP 98.5
[2017-05-23] MEDS ORDERED: SODIUM CHLORIDE IVPB ONE (17:45)
[2017-05-23] MEDS ORDERED: GENTAMICIN IVPB ONE (17:45)
[2017-05-23 18:04] VITALS: BMI 36.9
== END 2017-05-23 19:09 | disposition home or self-care (01) ==
LOC: JINFUSION 17:18 → J7W 17:32 → JINFUSION 19:09
PROVIDERS: ATTEND Nurse Practitioner Acute Care
DX: L03.115 Cellulitis of right lower limb (principal)
CPT/HCPCS: 96365

== ENCOUNTER 2017-05-24 17:33 | Day surgery (SDC) | payer OTHER ==
[2017-05-24 17:57] VITALS: PULSE 90; TEMP 98.3
[2017-05-24] MEDS ORDERED: GENTAMICIN IVPB ONE (18:00)
[2017-05-24] MEDS ORDERED: SODIUM CHLORIDE IVPB ONE (18:00)
[2017-05-24 19:19] VITALS: BP 112/61
== END 2017-05-24 20:55 | disposition home or self-care (01) ==
LOC: JINFUSION 17:33 → J7W 17:36 → JINFUSION 20:55
PROVIDERS: ATTEND Nurse Practitioner Acute Care
DX: L03.115 Cellulitis of right lower limb (principal)
CPT/HCPCS: 96365

== ENCOUNTER 2017-05-25 19:39 | Day surgery (SDC) | payer OTHER ==
--- NOTE | 2017-05-23 18:04 | HOSP ---
Subjective - Review of Symptoms Events since last encounter: Reviewed labs from 05/21/17. Cr is at baseline. Continue IV antibiotics.
[2017-05-25] MEDS ORDERED: GENTAMICIN IVPB ONE (20:15)
[2017-05-25] MEDS ORDERED: SODIUM CHLORIDE IVPB ONE (20:15)
[2017-05-25 21:43] VITALS: BP 139/77; PULSE 96; TEMP 98.2
[2017-05-25 22:28] LABS: EOSINOPHIL 1.8 % (0-4.5); MCH 30.5 pg (25.7-33.7); MCHC 33.9 g/dl (32.0-35.9); MEAN CELL VOLUME 90.1 fl (80-96); MEAN PLT VOLUME 8.2 fl (7.5-11.1); NEUTROPHILS 60.8 % (42.8-82.8); PLATELET COUNT 175 K/MM3 (134-434); RDW 14.3 % (11.9-15.9); WHITE BLOOD COUNT 6.9 K/mm3 (4.0-10.0)
[2017-05-25 22:48] LABS: ANION GAP 6 (8-16); CALCIUM 8.5 mg/dL (8.5-10.1); CO2 30 mmol/L (21-32); GLUCOSE,RANDOM 75 mg/dL (74-106)
== END 2017-05-25 22:41 | disposition home or self-care (01) ==
LOC: JINFUSION 19:39 → J7W 19:43 → JINFUSION 22:41
PROVIDERS: ATTEND Nurse Practitioner Acute Care
DX: L03.115 Cellulitis of right lower limb (principal)
CPT/HCPCS: 36415; 80048; 85025